=== PATIENT | male | born 1940 | race Caucasian/White ===

== ENCOUNTER 2020-04-17 01:35 | Emergency (ER) | payer SELFPAY ==
[~2020-04-17] VITALS: Ht 167.6 cm; Wt 71.9 kg
[2020-04-17 03:15] LABS: BASOPHILS # (AUTO) 0.03 x10^3/uL (0-0.1); BASOPHILS % (AUTO) 1 % (0-1); EOSINOPHILS # (AUTO) 0.11 x10^3/uL (0-0.4); EOSINOPHILS % (AUTO) 2 % (1-7); LYMPHOCYTES # (AUTO) 0.76 x10^3/uL (1-3.4); LYMPHOCYTES % (AUTO) 12 % (22-44); MD NO; MEAN CORPUSCULAR HEMOGLOBIN 29.2 pg (27.5-34.5); MEAN CORPUSCULAR HGB CONC 32.2 g/dL (33.2-36.2); MEAN CORPUSCULAR VOLUME 90.7 fL (81-97); MEAN PLATELET VOLUME 7.2 fL (7.4-10.4); MONOCYTES # (AUTO) 0.44 x10^3/uL (0.2-0.8); MONOCYTES % (AUTO) 7 % (2-9); NEUTROPHILS # (AUTO) 5.23 x10^3/uL (1.8-6.8); NEUTROPHILS % (AUTO) 80 % (42-75); PLATELET COUNT 235 x10^3/uL (130-400); RED BLOOD COUNT 3.98 x10^6/uL (4.38-5.82); RED CELL DISTRIBUTION WIDTH 14.9 % (9.4-14.8)
[2020-04-17 03:25] LABS: ALBUMIN 3.6 g/dL (3.4-5.0); ANION GAP 7 mmol/L (5-15); CHLORIDE 108 mmol/L (98-107)
[2020-04-17 03:36] LABS: ALANINE AMINOTRANSFERASE 26 U/L (12-78); ALKALINE PHOSPHATASE 54 U/L (45-117); BILIRUBIN,TOTAL 0.6 mg/dL (0.2-1.0); CREATININE 1.08 mg/dL (0.7-1.3)
[2020-04-17 03:37] LABS: SALICYLATE LEVEL < 1.7 mg/dL (2.8-20.0)
[2020-04-17 05:06] VITALS: BP 154/99
--- NOTE | 2020-04-17 05:39 | NUR ---
PT REFUSING TO GO INTO ROOM UNTILL WE PROVIDE HIM WITH "A MEDICAL SHOWER TO WASH OFF THE LSD POWER" PT REFUSING TO COMPLY WITH ASSESSMENT QUESTIONS, BECOMING ANGRY AND YELLING AT STAFF. PT THEN REQUESTING TO LEAVE. THEN SHOWN TO EXIT.
== END 2020-04-17 05:42 | disposition left against medical advice (07) ==
LOC: ED 05:23
DX: R44.3 Hallucinations, unspecified (principal)
CPT/HCPCS: 36415; 80053; 80307; 84443; 85025; 99283

== ENCOUNTER 2020-04-21 10:05 | Inpatient (IN) | payer MEDICARE, MEDICAID ==
[~2020-04-21] VITALS: Ht 167.6 cm; Wt 63.4 kg
--- NOTE | 2020-04-21 10:42 | NUR ---
Message left on Social Work's cell asking them to come see patient as soon as possible.
[2020-04-21 10:55] LABS: ALANINE AMINOTRANSFERASE 31 U/L (12-78); ALBUMIN 3.5 g/dL (3.4-5.0); ANION GAP 5 mmol/L (5-15); CALCIUM 8.5 mg/dL (8.5-10.1); CHLORIDE 108 mmol/L (98-107); CREATININE 1.19 mg/dL (0.7-1.3)
--- NOTE | 2020-04-21 10:56 | NUR ---
PT PRESENTS TO ED WITH REQUEST TO REFILL NITRO RX. PT DEMONSTRATES PARANOID DELUSIONS, HOWEVER DENIES HI/SI. PT IS A&O, RESPS EVEN AND UNLABORED, NEURO INTACT, NSR ON MONITORING SPECIALIST WITH NO ECTOPY. PT ATTACHED TO ALL MONITORS, INSTRUCTED TO REMAIN IN BED AND CALL IF ASSISTANCE IS NEEDED. BED LOCKED AND IN LOWEST POSITION, CALL LIGHT IN REACH, PT INSTRUCTED ON USE. PT DENIES PAIN. OCCAISIONAL COUGH NOTED, PT STATES THIS HAS BEEN PRESENT X 1 WEEK "SINCE THEY SPRAYED US WITH LSD." SUYAPA CHRISTENSEN NOTIFIED. DECLINES TO ORDER COVID SCREEN AT THIS TIME. MASK ON PT AND STAFF. MEAL TRAY ORDERED BY , PT TO SEE STAFF NUCLEAR WEAPONS OFFICER WHEN IN HOUSE.
[2020-04-21 11:00] LABS: ALKALINE PHOSPHATASE 64 U/L (45-117); BILIRUBIN,TOTAL 0.6 mg/dL (0.2-1.0); TOTAL PROTEIN 8.1 g/dL (6.4-8.2); TROPONIN I < 0.015 ng/mL (0.000-0.045)
--- NOTE | 2020-04-21 11:03 | NUR ---
PT REFUSING CXR, EDMD FERMIN NOTIFIED.
[2020-04-21 11:06] LABS: BASOPHILS # (AUTO) 0.03 x10^3/uL (0-0.1); BASOPHILS % (AUTO) 1 % (0-1); EOSINOPHILS # (AUTO) 0.09 x10^3/uL (0-0.4); EOSINOPHILS % (AUTO) 2 % (1-7); LYMPHOCYTES # (AUTO) 0.62 x10^3/uL (1-3.4); LYMPHOCYTES % (AUTO) 12 % (22-44); MD NO; MEAN CORPUSCULAR HGB CONC 32.9 g/dL (33.2-36.2); MEAN PLATELET VOLUME 7.3 fL (7.4-10.4); MONOCYTES # (AUTO) 0.38 x10^3/uL (0.2-0.8); MONOCYTES % (AUTO) 7 % (2-9); NEUTROPHILS % (AUTO) 79 % (42-75); PLATELET COUNT 238 x10^3/uL (130-400); RED BLOOD COUNT 3.85 x10^6/uL (4.38-5.82)
--- NOTE | 2020-04-21 11:17 | NUR ---
THIS RN SPOKE WITH PT, ATTEMPTING TO CONVINCE PT TO ALLOW CXR, PT REFUSING TREATMENT AT THIS TIME, STATING HE NEEDS TO LEAVE "TO SAVE MY FRIEND'S LIFE, THEY MIGHT KILL HIM." PT REQUESTED RN TO REMOVE ALL MONITORS. SUYAPA CHRISTENSEN NOTIFIED, LUBA CONTRERAS NOTIFIED, LUBA CONTRERAS AT BEDSIDE AT THIS TIME.
--- NOTE | 2020-04-21 11:40 | NUR ---
LUBA CONTRERAS HAS PLACED THE PT ON A LEGAL HOLD, PT EDUCATED REGARDING PROCESS AND POC. PT AGITATED AND UPSET. PT INSTRUCTED TO PROVIDE URINE SAMPLE, PT DEFECATED IN URINAL. TECH AT BEDSIDE A SITTER FOR SAFETY. PT REFUSING TO UNDRESS INTO GOWN, REFUSING MONITORS, REFUSING TO COOPERATE IN ANY FASION.
--- NOTE | 2020-04-21 11:41 | NUR ---
psych whipped topping supervisor paged for Dr. Heredia
[2020-04-21] MEDS ORDERED: HALOPERIDOL 5 MG/ML ONE ×3 (11:51→22:52)
[2020-04-21] MEDS ORDERED: LORazepam 2 MG/ML, 1ML ONE ×2 (11:52→15:03)
[2020-04-21] MEDS ORDERED: HALOPERIDOL 5 MG/ML IM ONE (12:00)
[2020-04-21] MEDS ORDERED: LORazepam 2 MG/ML, 1ML IM ONE (12:00)
--- NOTE | 2020-04-21 12:00 | NUR ---
PT MEDICATED FOR AGITATION, SECURITY AT BEDSIDE TO ASSIST PT INTO GOWN AND ON MONITORS. PT MOVED TO SECURE ROOM (3), REPORT GIVEN TO ANNA MARIE MORA WHO IS ASSUMING CARE.
--- NOTE | 2020-04-21 12:22 | NUR ---
REPORT FROM DAKOTA THRASHER, ASSUME CARE OF PT AT THIS TIME. PT UNDRESSED AND PLACED IN GOWN WITH ASSISTANCE OF SECURITY AND SIDE FRAMER. BELONGINGS TO SECURE LOCKER. PT PLACED ON HEART MONITOR, BP CUFF, PULSE OX. PT STATES HE HAS COUGH AND SOB BUT JUST WANTS "NITRO". PT STATES HE TESTED POSTIVE FOR COVID IN NOVEMBER AND WAS HOSPITALIZED FOR 1.5 MONTHS IN [place], [place]. DROPLET PRECAUTIONS IN PLACE D/T RESP SX. SITTER AT DOORWAY FOR LEGAL HOLD.
--- NOTE | 2020-04-21 12:30 | NUR ---
XR TECH INFORMED, PT READY FOR PCXR.
[2020-04-21] MEDS ORDERED: POTASSIUM CHLORIDE 20 MEQ TAB.ER.PRT ONE (13:23)
[2020-04-21] MEDS ORDERED: FUROSEMIDE 40 MG TABLET ONE (13:23)
[2020-04-21] MEDS ORDERED: FUROSEMIDE 40 MG TABLET PO ONE (13:30)
[2020-04-21] MEDS ORDERED: POTASSIUM CHLORIDE 20 MEQ TAB.ER.PRT PO ONE (13:30)
--- NOTE | 2020-04-21 13:36 | NUR ---
PO MEDS GIVEN PER ERP ORDER. CNC SUPERVISOR IN TO START IV FOR ADMIT. COVID TEST SAMPLE OBTAINED BY DR CHRISTENSEN. CALL LIGHT WITHIN REACH, VS UPDATED IN COMPUTER. PT MORE COOPERATIVE WITH CARE AT THIS TIME.
--- NOTE | 2020-04-21 14:06 | NUR ---
SATS DIPPING TO 88% WHILE PT SLEEPING. OXYGEN PLACED AT 2LITERS VIA NC. SITTER REMAINS IN DOORWAY.
[2020-04-21] MEDS ORDERED: DIPHENHYDRAMINE 50 MG/ML, 1ML IM PRN (15:00)
[2020-04-21] MEDS ORDERED: DIPHENHYDRAMINE 50 MG/ML, 1ML ONE (15:03)
--- NOTE | 2020-04-21 15:26 | NUR ---
PT AWOKE, DEFECATED IN URINAL AND PULLED IV OUT. PT THEN PROCEEDED TO THROW STOOL, URINAL, AND IV AT LABOR CONTRACTOR/SITTER. OXYGEN AND PULSE OX ALSO REMOVED BY PT. PT YELLING UNINTELLIGIBLE THINGS AT STAFF. CAROL MARQUEZ CALLED TO EVALUATE. PRNS ORDERED, MEDS DRAWN UP BUT PT SLEEPING PRIOR TO ADMINISTRATION. CAROL MARQUEZ AT -ATTEMPT TO EVALUATE PT. PT UNCOOPERATIVE, NOT ASKING QUESTIONS, THROWING GOWN AND URINAL OFF BED. HOLD ON MEDS PER JIMMY D/T PT'S DROWSY STATE. PULSE OX AND OXYGEN PLACED BACK ON. SITTER AT DOORWAY.
[2020-04-21] MEDS: HALOPERIDOL 5 MG/ML IM PRN ×2 (16:14→22:57)
[2020-04-21] MEDS: LORazepam 2 MG/ML, 1ML IM PRN (16:14)
--- NOTE | 2020-04-21 16:14 | NUR ---
PT UP IN ROOM AGAIN, REMOVED ALL MONITORING EQUIPMENT AND DEFECATING IN ROOM. PT NOT RECEPTIVE TO REORIENTATION OR DIVERSIONAL ACTIVITIES. PT TOUCHING COMPUTER, WIPING STOOL ON CURTAIN, FOSTER, ETC. SECURITY CALLED AND RESTRAINTS PLACED. PT MEDICATED PER PRN ORDER. ALL MONITORING EQUIPMENT BACK IN PLACE. SITTER MAINTAINED AT BS.
[2020-04-21] MEDS ORDERED: LABETALOL 5MG/ML, 20ML IVPush PRN (16:30)
[2020-04-21] MEDS ORDERED: ACETAMINOPHEN 325 MG TABLET PO PRN (16:30)
[2020-04-21] MEDS ORDERED: HALOPERIDOL 5 MG/ML IM PRN (16:30)
[2020-04-21] MEDS ORDERED: hydrALAzine 20 MG/ML, 1ML IVPush PRN (16:30)
[2020-04-21] MEDS ORDERED: PROMETHAZINE 25 MG/ML, 1ML IM PRN (16:30)
[2020-04-21] MEDS ORDERED: ONDANSETRON 2MG/ML, 2ML IVPush PRN (16:30)
--- NOTE | 2020-04-21 16:30 | NUR ---
VS RECORDED ON RESTRAINT MONITORING SHEET. UNABLE TO GET AUTO BP CUFF READING. MANUAL CUFF WITH AUSCULTAION FOR BP, UPDATED IN COMPUTER.
[2020-04-21] MEDS ORDERED: FUROSEMIDE 20 MG/2 ML IV SCH (17:00)
--- NOTE | 2020-04-21 17:44 | NUR ---
PT LYING ON GURNEY, HAY-PULLING AT RESTRAINTS. PT REMAINS CONFUSED TO SITUATION AND UNSAFE TO CONSIDER REMOVAL OF RESTRAINTS AT THIS TIME. VSS/UPDATED IN COMPUTER. SITTER AT DOORWAY.
[2020-04-21 17:49] LABS: TROPONIN I 0.021 ng/mL (0.000-0.045)
[2020-04-21] MEDS ORDERED: HEPARIN 5,000 UNITS/ML, 1ML ONE (18:36)
[2020-04-21] MEDS ORDERED: NS + 40MEQ KCL 1,000 ML IV ONE (18:36)
[2020-04-21] MEDS: HEPARIN 5,000 UNITS/ML, 1ML SQ SCH (19:04)
--- NOTE | 2020-04-21 19:09 | NUR ---
MED REQUEST TO PHARMACY FOR IV KCL FLUIDS. IV REESTABLISHED BY COMMUNICATIONS SYSTEMS ENGINEER. VSS/UPDATED IN COMPUTER. PT CONTINUES TO PULL AT RESTRAINTS. REASSURANCE OFFERED, LIGHTS DIMMED. SITTER AT DOORWAY.
[2020-04-21] MEDS ORDERED: POTASSIUM CHLORIDE 40 MEQ in SODIUM CHLORIDE 0.9% 500 ML IV ONE (19:20)
--- NOTE | 2020-04-21 19:58 | NUR ---
Late note: this tech and cduncan assisted with restraint of pt, dressing, changing of bedding, diapering, cutting down feces covered curtain These two techs solely cleaned feces, blood and urine from the bed, etienne, and floor
--- NOTE | 2020-04-21 20:33 | NUR ---
DR POLKTCH IN TO DO FACE TO FACE REASSESSMENT FOR RESTRAINTS. VSS. PT SLEEPING INTERMITTENTLY, NAD. PT CONTINUES TO PULL ON RESTRAINTS, MUMBLES UNINTELLIGIBLY WHEN ASKED QUESTIONS. PT NOT SAFE TO BE WITHOUT RESTRAINTS. SITTER AT DOORWAY.
--- NOTE | 2020-04-21 21:02 | NUR ---
REPORT TO AMPARO RN, TRANSFER OF CARE AT THIS TIME.
--- NOTE | 2020-04-21 21:07 | NUR ---
REPORT FROM ABBY THRASHER.
[2020-04-21] MEDS ORDERED: hydrALAzine 20 MG/ML, 1ML ONE (22:08)
[2020-04-21] MEDS ORDERED: LABETALOL 5MG/ML, 20ML ONE (22:51)
--- NOTE | 2020-04-21 23:03 | NUR ---
PT CONTINUES TO BE RESTLESS AND AGITATED. MEDICATED PER MAR. SITTER OUTSIDE DOOR.
--- NOTE | 2020-04-21 23:59 | NUR ---
PT SLEEPING, RESTRAINTS REMOVED. SAFETY FALL PRECAUTIONS IN PLACE. SITTER OUTSIDE ROOM.
--- NOTE | 2020-04-22 01:11 | NUR ---
PT SLEEPING NO ACUTE DISTRESS NOTED. SITTER IN HALLWAY.
[2020-04-22] MEDS ORDERED: HEPARIN 5,000 UNITS/ML, 1ML ONE (02:12)
[2020-04-22] MEDS: HEPARIN 5,000 UNITS/ML, 1ML SQ SCH ×3 (02:18→17:58)
--- NOTE | 2020-04-22 02:26 | NUR ---
UPDATED NIGHT HOSPITALIST ON TROPONIN 0.05. NO NEW ORDERS AT THIS TIME.
--- NOTE | 2020-04-22 02:52 | NUR ---
PT NOTED TO HAVE INCREASED WOB, SATS AT 91% 2L NC. CALL TO RT FOR EVAL. WILL UPDATE HOSPITALIST.
--- NOTE | 2020-04-22 03:06 | NUR ---
PER DR. GALLEGO GIVE LASIX 40MG IV ONE TIME, AND ABG. ORDERS ENTERED AND VERIFIED.
[2020-04-22] MEDS ORDERED: FUROSEMIDE 40 MG/4 ML ONE (03:08)
--- NOTE | 2020-04-22 03:20 | NUR ---
UPDATED HOSPITALIST ON FEVER SPIKE. RECTAL TYLENOL ORDER PER .
[2020-04-22] MEDS ORDERED: ACETAMINOPHEN 650 MG SUPP ONE ×2 (03:21→07:22)
[2020-04-22] MEDS: ACETAMINOPHEN 650 MG SUPP PR PRN ×2 (03:26→07:29)
[2020-04-22] MEDS ORDERED: FUROSEMIDE 40 MG/4 ML IV ONE (03:30)
[2020-04-22 05:24] LABS: CALCIUM 8.6 mg/dL (8.5-10.1); CHLORIDE 111 mmol/L (98-107)
[2020-04-22 05:33] LABS: ALANINE AMINOTRANSFERASE 26 U/L (12-78); ALKALINE PHOSPHATASE 47 U/L (45-117); ANION GAP 7 mmol/L (5-15); BILIRUBIN,TOTAL 1.1 mg/dL (0.2-1.0); CHOL/HDL RATIO 2.3; CHOLESTEROL, TOTAL 134 mg/dL (140-239); CREATININE 2.44 mg/dL (0.7-1.3); HDL CHOL % 44 % (26-37); HDL CHOLESTEROL (DIRECT) 59 mg/dL (40-60); LDL CHOLESTEROL,CALCULATED 65 mg/dL (54-169); LDL/HDL RATIO 1.1 (0.5-3.0); TOTAL PROTEIN 7.1 g/dL (6.4-8.2); TRIGLYCERIDES 49 mg/dL (50-200); TROPONIN I 0.096 ng/mL (0.000-0.045); VLDL CHOLESTEROL 10 mg/dL (0-25)
[2020-04-22] MEDS ORDERED: LORazepam 2 MG/ML, 1ML ONE (05:36)
[2020-04-22] MEDS: LORazepam 2 MG/ML, 1ML IM PRN (05:40)
--- NOTE | 2020-04-22 05:42 | NUR ---
PT INCREASINGLY RESTLESS AND AGITATED. MEDICATED PER MAR.
[2020-04-22 05:57] LABS: MEAN CORPUSCULAR HEMOGLOBIN 29.9 pg (27.5-34.5); MEAN CORPUSCULAR HGB CONC 32.9 g/dL (33.2-36.2); MEAN PLATELET VOLUME 7.7 fL (7.4-10.4); PLATELET COUNT 161 x10^3/uL (130-400); RED BLOOD COUNT 4.24 x10^6/uL (4.38-5.82); RED CELL DISTRIBUTION WIDTH 15.2 % (9.4-14.8)
--- NOTE | 2020-04-22 05:57 | NUR ---
TROPONIN 0.096 REPORTED TO MD GALLEGO. NO NEW ORDERS AT THIS TIME.
--- NOTE | 2020-04-22 05:57 | NUR ---
PT HAD ONE LARGE BM, PROVIDED PERICARE. FALL PRECAUTIONS IN PLACE. SITTER OUTSIDE DOOR FOR SAFETY. HOSPITAL BED REQUESTED.
[2020-04-22 05:59] LABS: MD YES
[2020-04-22 06:01] LABS: ANISOCYTOSIS 1+; BAND#(MANUAL) 1.05 x10^3/uL; BANDS%(MANUAL) 19 % (0-7); HYPOCHROMIA 1+; LYMPH#(MANUAL) 0.17 x10^3/uL (1-3.4); LYMPHS% (MANUAL) 3 % (22-44); MONOS#(MANUAL) 0.11 x10^3/uL (0.3-2.7); MONOS% (MANUAL) 2 % (2-9); POLYCHROMASIA 1+; SEG#(MANUAL) 4.18 x10^3/uL (1.8-6.8); SEGS% (MANUAL) 76 % (42-75)
[2020-04-22 06:02] LABS: <PLATELET ESTIMATE> ADEQUATE; <PLT MORPHOLOGY> NORMAL PLT MORPH; PMNS WITH VACUOLES 1+
--- NOTE | 2020-04-22 06:56 | NUR ---
REPORT GIVEN TO ABIMBOLA THRASHER.
--- NOTE | 2020-04-22 07:18 | NUR ---
PT WITH RR 45, SAT 93% 5L. PT ARROUSABLE TO STERNAL RUB ONLY, PAINFUL RESPONSE NOT OPENING EYES. PT WITH LOW BP 95/58, TEMP 103.0, TYELENOL GIVEN 3 HR AGO. CALLED TO UPDATE, HE IS TO COME EVAL PT, ORDERS RECIEVED STAT ABG, DX CHEST
--- NOTE | 2020-04-22 07:51 | NUR ---
SECOND PIV INITIATED,DX CHEST COMPLETED. AWAITING ABG. IN TO EVAL PT, PLAN TO INTUBATE. PT TO MOVE TO ER 41. REPORT TO SEEMA THRASHER
[2020-04-22] MEDS: PROPOFOL 100 ML IV PRN (08:20)
[2020-04-22] MEDS ORDERED: PROPOFOL 10 MG/ML, 20ML IVPush ONE (08:30)
[2020-04-22] MEDS ORDERED: SUCCINYLCHOLINE 20 MG/ML, 10ML IVPush ONE (08:30)
[2020-04-22] MEDS ORDERED: VECURONIUM 10 MG IVPush ONE (08:30)
[2020-04-22] MEDS ORDERED: FENTANYL PF 100 MCG/2ML IV ONE (08:30)
[2020-04-22] MEDS ORDERED: ETOMIDATE 20 MG/10 ML IV ONE (08:30)
--- NOTE | 2020-04-22 08:37 | NUR ---
HOSPITALIST CALLED FOR LOW BP 56/34. ORDERS RECIEVED
[2020-04-22] MEDS ORDERED: NOREPINEPHRINE 8 MG in SODIUM CHLORIDE 0.9% 242 ML IV PRN (08:40)
[2020-04-22] MEDS: NOREPINEPHRINE 8 MG in SODIUM CHLORIDE 0.9% 242 ML IV PRN ×2 (08:40→15:27)
[2020-04-22] MEDS: SODIUM CHLORIDE 0.9% 1,500 ML IV SCH ×2 (09:00→12:00)
[2020-04-22] MEDS: ASPIRIN 81 MG TABLET CHEW PO SCH (09:00)
[2020-04-22] MEDS ORDERED: SODIUM CHLORIDE 0.9% 1,000ML IVBOLUS ONE ×2 (09:00→12:00)
[2020-04-22] MEDS ORDERED: PHENYLEPHRINE 50 MG in SODIUM CHLORIDE 0.9% 245 ML IV PRN (09:00)
--- NOTE | 2020-04-22 10:10 | NUR ---
SPOKE WITH DR. HOFFMAN. DISCUSSED PCT CRITICAL VALUE AND ANTHONY. PLACED ANTHONY VIA HEAD OF PENIS. CATETER EXITED THE PATIENT IN SCROTUM AREA BELOW END OF SHAFT. HOSPITALIST AWARE.
--- NOTE | 2020-04-22 10:12 | NUR ---
LATE ENTRY FOR 0800. PT TRANSFERRED TO ROOM 41. HOSPITALIST REQUESTS INTUBATION.
--- NOTE | 2020-04-22 10:12 | NUR ---
LATE ENTRY FOR 829 INTUBATION COMPLETE. PT ON APPROPRIATE MEDICATIONS PER ORDERS. NADN.
--- NOTE | 2020-04-22 10:13 | NUR ---
LATE ENTRY FOR [address] ANTHONY.
--- NOTE | 2020-04-22 10:48 | NUR ---
SPOKE WITH DR. HOFFMAN. PER DR. HOFFMAN SHE WANTS SYSTOLIC >90. ORDER FOR ANOTHER LITER OF NS AND TO TITRATE MEDICATION TO MEET HER REQUEST. Addendum: 04/22/20 at 1148 by ALFREDO ALSO ASKED ABOUT A POSSIBLE CENTRAL LINE.
--- NOTE | 2020-04-22 11:02 | NUR ---
DR. HOFFMAN STATES THAT A COUDE ANTHONY CAN BE INSTERTED INTO THE "FISTULA" IN THE SCROTUM. THAT IF NEEDED, DR. SANDRO CAREY WILL COME THIS AFTERNOON.
--- NOTE | 2020-04-22 12:12 | NUR ---
LITER BOLUS FROM EARLIER ORDER FROM DR. HOFFMAN COMPLETED.
--- NOTE | 2020-04-22 12:44 | NUR ---
SPOKE WITH DR. HOFFMAN. RELAYED PT RATE FOR LEVO AND PRESSURE. STATES SHE IS GOING TO ORDER VASOPRESSIN. ALSO RELAYED TO DR. HOFFMAN TO CALL DR. SANDRO CAREY TO INSERT ANTHONY.
[2020-04-22] MEDS ORDERED: VASOPRESSIN 20 UNIT in SODIUM CHLORIDE 0.9% 99 ML IV PRN (13:00)
--- NOTE | 2020-04-22 13:18 | NUR ---
TASK RN NOTE: ATTEMPT FOR ANOTHER IV. ONE AREA ON LEFT FOREARM ATTEMPTED WITHOUT SUCCESS FOR PIV ACCESS. PRIMARY RN AWARE.
--- NOTE | 2020-04-22 13:21 | NUR ---
THIRD PIV UNSUCCESSFUL. VASO HAS NOT ARRIVED FROM PHARMACY. PT BEING TRANSPORTED TO CT AND THEN ICU
[2020-04-22] MEDS ORDERED: FENTANYL PF 100 MCG/2ML ONE (13:56)
[2020-04-22] MEDS ORDERED: ETOMIDATE 20 MG/10 ML ONE (15:00)
[2020-04-22] MEDS ORDERED: PROPOFOL 10 MG/ML, 100ML IV ONE (15:00)
[2020-04-22] MEDS ORDERED: VECURONIUM 10 MG ONE (15:00)
[2020-04-22] MEDS ORDERED: SUCCINYLCHOLINE 20 MG/ML, 10ML ONE (15:00)
[2020-04-22] MEDS ORDERED: PROPOFOL 10 MG/ML, 20ML ONE (15:00)
[2020-04-22 15:10] LABS: MICROSCOPIC INDICATED
[2020-04-22 15:13] LABS: AMPHETAMINE SCREEN, URINE Negative (Negative); BARBITURATE SCREEN, URINE Negative (Negative); BENZODIAZEPINE SCREEN, URINE Negative (Negative); CANNABINOID SCREEN, URINE Negative (Negative); COCAINE SCREEN, URINE Negative (Negative); METHADONE SCREEN, URINE Negative (Negative); OPIATE SCREEN, URINE Negative (Negative)
[2020-04-22] MEDS: LINEZOLID PMX 600MG/300ML 300 ML IV SCH (15:37)
[2020-04-22 16:37] LABS: ANION GAP 9 mmol/L (5-15); CALCIUM 7.4 mg/dL (8.5-10.1); CHLORIDE 117 mmol/L (98-107); CREATININE 3.03 mg/dL (0.7-1.3)
[2020-04-22 16:41] LABS: TROPONIN I 0.174 ng/mL (0.000-0.045)
[2020-04-22 16:45] LABS: D-DIMER 7.37 ug/mlFEU (0.00-0.52); INTERNATIONAL NORMALIZED RATIO 1.24 (0.93-1.1); PROTHROMBIN TIME 13.2 Seconds (9.6-11.5)
[2020-04-22] MEDS ORDERED: POTASSIUM CHLORIDE 20 MEQ PACKET PO SCH (17:00)
[2020-04-22] MEDS ORDERED: SODIUM CHLORIDE 0.9% 1,000 ML IV SCH (17:30)
[2020-04-22] MEDS ORDERED: ACETAMINOPHEN 650 MG/20.3 ML UDC ONE (17:52)
[2020-04-22] MEDS: ACETAMINOPHEN 650 MG/20.3 ML UDC PO PRN (17:58)
[2020-04-22] MEDS: PIPERACILLIN/TAZO/PMX 3.375GM 50 ML IV SCH ×2 (17:59→23:57)
[2020-04-22] MEDS: NOREPINEPHRINE 32 MG in SODIUM CHLORIDE 0.9% 218 ML IV PRN (18:38)
[2020-04-22] MEDS: ATORVASTATIN 40 MG TABLET PO SCH (20:08)
[2020-04-22 23:04] LABS: TROPONIN I 0.306 ng/mL (0.000-0.045)
[2020-04-23] MEDS: LINEZOLID PMX 600MG/300ML 300 ML IV SCH ×2 (02:51→13:45)
[2020-04-23] MEDS: HEPARIN 5,000 UNITS/ML, 1ML SQ SCH ×3 (02:53→18:26)
[2020-04-23] MEDS: ACETAMINOPHEN 650 MG/20.3 ML UDC PO PRN (02:55)
[2020-04-23] MEDS: PROPOFOL 100 ML IV PRN ×4 (04:09→20:02)
[2020-04-23] MEDS: NOREPINEPHRINE 32 MG in SODIUM CHLORIDE 0.9% 218 ML IV PRN ×2 (04:34→20:03)
[2020-04-23 05:46] LABS: MEAN CORPUSCULAR HEMOGLOBIN 29.6 pg (27.5-34.5); MEAN CORPUSCULAR HGB CONC 32.3 g/dL (33.2-36.2); MEAN PLATELET VOLUME 8.9 fL (7.4-10.4); PLATELET COUNT 133 x10^3/uL (130-400)
[2020-04-23 05:49] LABS: ALANINE AMINOTRANSFERASE 34 U/L (12-78); ALBUMIN 2.1 g/dL (3.4-5.0); ANION GAP 10 mmol/L (5-15); CALCIUM 7.2 mg/dL (8.5-10.1); CHLORIDE 115 mmol/L (98-107); CREATININE 3.63 mg/dL (0.7-1.3)
[2020-04-23 05:51] LABS: ALKALINE PHOSPHATASE 43 U/L (45-117); BILIRUBIN,TOTAL 1.1 mg/dL (0.2-1.0); TOTAL PROTEIN 6.7 g/dL (6.4-8.2)
[2020-04-23 06:03] LABS: MD YES
[2020-04-23 06:06] LABS: BAND#(MANUAL) 2.66 x10^3/uL; BANDS%(MANUAL) 15 % (0-7); LYMPH#(MANUAL) 1.06 x10^3/uL (1-3.4); LYMPHS% (MANUAL) 6 % (22-44); METAMYELOCYTES# (MANUAL) 0.53 x10^3/uL (0-0); METAMYELOCYTES% (MANUAL) 3 % (0-1); MONOS#(MANUAL) 0.89 x10^3/uL (0.3-2.7); MONOS% (MANUAL) 5 % (2-9); SEG#(MANUAL) 12.57 x10^3/uL (1.8-6.8); SEGS% (MANUAL) 71 % (42-75)
[2020-04-23 06:07] LABS: ANISOCYTOSIS 1+; POLYCHROMASIA 1+
[2020-04-23] MEDS: PIPERACILLIN/TAZO/PMX 3.375GM 50 ML IV SCH (06:07)
[2020-04-23 06:08] LABS: <PLATELET ESTIMATE> ADEQUATE; <PLT MORPHOLOGY> NORMAL PLT MORPH; PMNS WITH VACUOLES 1+
[2020-04-23] MEDS ORDERED: SODIUM ZIRCONIUM CYCLOSILICATE 5 GM PO ONE (06:30)
[2020-04-23] MEDS ORDERED: SODIUM BICARBONATE 8.4% 150 MEQ in DEXTROSE 5% 1,000 ML IV SCH (06:30)
[2020-04-23 07:20] LABS: TROPONIN I 0.521 ng/mL (0.000-0.045)
--- NOTE | 2020-04-23 09:43 | NUR ---
TF Recommendations as Needed: Osmolite 1.2 ON/OFF propofol 70 ml/hr
[2020-04-23] MEDS: ASPIRIN 81 MG TABLET CHEW PO SCH (10:46)
[2020-04-23 12:06] LABS: TROPONIN I 0.511 ng/mL (0.000-0.045)
[2020-04-23] MEDS ORDERED: PIPERACILLIN/TAZO/PMX 3.375GM 50 ML IV SCH (13:30)
[2020-04-23 15:41] LABS: ALBUMIN 1.7 g/dL (3.4-5.0); ANION GAP 9 mmol/L (5-15); CALCIUM 6.6 mg/dL (8.5-10.1); CHLORIDE 109 mmol/L (98-107); CREATININE 3.64 mg/dL (0.7-1.3)
[2020-04-23] MEDS ORDERED: CALCIUM GLUCONATE 4.6 MEQ in SODIUM CHLORIDE 0.9% 100 ML IV ONE (16:30)
[2020-04-23] MEDS ORDERED: DILTIAZEM 5 MG/ML, 5ML IVPush PRN (18:00)
[2020-04-23] MEDS: SODIUM CHLORIDE 0.9% 1,000 ML IV SCH (18:27)
[2020-04-23] MEDS: ATORVASTATIN 40 MG TABLET PO SCH (20:02)
[2020-04-23] MEDS: PIPERACILLIN/TAZO/PMX 2.25GM 50 ML IVPB SCH (20:02)
[2020-04-24] MEDS: HEPARIN 5,000 UNITS/ML, 1ML SQ SCH (02:16)
[2020-04-24] MEDS: LINEZOLID PMX 600MG/300ML 300 ML IV SCH (02:16)
[2020-04-24] MEDS: ACETAMINOPHEN 650 MG/20.3 ML UDC PO PRN (04:00)
[2020-04-24 04:33] LABS: MEAN CORPUSCULAR HGB CONC 32.9 g/dL (33.2-36.2); MEAN PLATELET VOLUME 9.1 fL (7.4-10.4); PLATELET COUNT 100 x10^3/uL (130-400); RED BLOOD COUNT 3.41 x10^6/uL (4.38-5.82); RED CELL DISTRIBUTION WIDTH 15.9 % (9.4-14.8)
[2020-04-24 04:39] LABS: ALBUMIN 1.7 g/dL (3.4-5.0); ANION GAP 8 mmol/L (5-15); CALCIUM 7.4 mg/dL (8.5-10.1); CHLORIDE 108 mmol/L (98-107)
[2020-04-24 04:42] LABS: ALANINE AMINOTRANSFERASE 26 U/L (12-78); ALKALINE PHOSPHATASE 44 U/L (45-117); CREATININE 3.66 mg/dL (0.7-1.3); TOTAL PROTEIN 5.7 g/dL (6.4-8.2)
[2020-04-24] MEDS: PIPERACILLIN/TAZO/PMX 2.25GM 50 ML IVPB SCH ×3 (05:19→21:24)
[2020-04-24 05:55] LABS: MD YES
[2020-04-24 05:57] LABS: BAND#(MANUAL) 1.94 x10^3/uL; BANDS%(MANUAL) 16 % (0-7); LYMPH#(MANUAL) 0.36 x10^3/uL (1-3.4); LYMPHS% (MANUAL) 3 % (22-44); MONOS#(MANUAL) 0.12 x10^3/uL (0.3-2.7); MONOS% (MANUAL) 1 % (2-9); SEG#(MANUAL) 9.68 x10^3/uL (1.8-6.8); SEGS% (MANUAL) 80 % (42-75)
[2020-04-24 05:58] LABS: <PLATELET ESTIMATE> DECREASED; <PLT MORPHOLOGY> NORMAL PLT MORPH; ANISOCYTOSIS 1+; PMNS WITH VACUOLES 1+
[2020-04-24] MEDS: PROPOFOL 100 ML IV PRN (06:07)
[2020-04-24] MEDS: PANTOPRAZOLE 40 MG IV IVPush SCH (09:21)
[2020-04-24] MEDS: ASPIRIN 81 MG TABLET CHEW PO SCH (09:22)
[2020-04-24 10:21] LABS: PLATELET (DIC) 98 x10^3/uL (130-400)
[2020-04-24 10:46] LABS: PROTIME 10.8 Seconds (9.6-11.5); PTT 39 Seconds (25-31)
[2020-04-24 10:55] LABS: FIBRINOGEN > 860 mg/dL (200-340)
[2020-04-24] MEDS: SODIUM CHLORIDE 0.9% 1,000 ML IV SCH ×2 (11:29→21:24)
[2020-04-24] MEDS ORDERED: PROPOFOL 100 ML IV PRN (16:04)
[2020-04-24] MEDS ORDERED: SODIUM CHLORIDE 0.9% 1,000ML IVBOLUS ONE (16:30)
[2020-04-24] MEDS ORDERED: SENNA 176 MG/5 ML ORAL SOL NG PRN (16:30)
[2020-04-24] MEDS ORDERED: LACTULOSE 20 GM/30 ML UDC NG PRN (16:30)
[2020-04-24] MEDS ORDERED: DEXTROSE 4 GM TAB.CHEW PO PRN (16:30)
[2020-04-24] MEDS ORDERED: BISACODYL 10 MG SUPP PR PRN (16:30)
[2020-04-24] MEDS ORDERED: LIDOCAINE-MPF 1%, 2ML ENDO PRN (16:30)
[2020-04-24] MEDS ORDERED: PHARMACY MAY ADJ FOR RENAL FX MC SCH (16:30)
[2020-04-24] MEDS ORDERED: GLUCAGON 1 MG IM PRN (16:30)
[2020-04-24] MEDS ORDERED: DEXTROSE 50%, 50ML SYRINGE IVPush PRN (16:30)
[2020-04-24] MEDS ORDERED: MIDAZOLAM 1 MG/ML, 2ML IVPush PRN (16:30)
[2020-04-24] MEDS ORDERED: SENNA/DOCUSATE TABLET NG PRN (16:30)
[2020-04-24] MEDS: DEXMEDETOMIDINE 400 MCG in SODIUM CHLORIDE 0.9% 96 ML IV PRN (19:58)
[2020-04-24] MEDS: ATORVASTATIN 40 MG TABLET PO SCH (21:24)
[2020-04-24] MEDS: SODIUM CHLORIDE FLUSH 10ML SYR IVF SCH (21:25)
[2020-04-25] MEDS: DEXMEDETOMIDINE 400 MCG in SODIUM CHLORIDE 0.9% 96 ML IV PRN (03:39)
[2020-04-25 04:28] LABS: ALANINE AMINOTRANSFERASE 28 U/L (12-78); ALBUMIN 1.6 g/dL (3.4-5.0); ANION GAP 9 mmol/L (5-15); CHLORIDE 114 mmol/L (98-107); CREATININE 3.86 mg/dL (0.7-1.3)
[2020-04-25 04:30] LABS: ALKALINE PHOSPHATASE 60 U/L (45-117); BILIRUBIN,TOTAL 0.8 mg/dL (0.2-1.0); TOTAL PROTEIN 5.3 g/dL (6.4-8.2)
[2020-04-25 04:43] VITALS: BP 95/66
[2020-04-25 05:06] LABS: MD YES; MEAN CORPUSCULAR HEMOGLOBIN 30.1 pg (27.5-34.5); MEAN CORPUSCULAR HGB CONC 33.3 g/dL (33.2-36.2); MEAN PLATELET VOLUME 8.9 fL (7.4-10.4); PLATELET COUNT 80 x10^3/uL (130-400); RED BLOOD COUNT 2.72 x10^6/uL (4.38-5.82); RED CELL DISTRIBUTION WIDTH 16.3 % (9.4-14.8)
[2020-04-25 05:12] LABS: ANISOCYTOSIS 1+; BAND#(MANUAL) 0.96 x10^3/uL; BANDS%(MANUAL) 9 % (0-7); LYMPH#(MANUAL) 0.32 x10^3/uL (1-3.4); LYMPHS% (MANUAL) 3 % (22-44); METAMYELOCYTES# (MANUAL) 0.11 x10^3/uL (0-0); METAMYELOCYTES% (MANUAL) 1 % (0-1); MONOS#(MANUAL) 0.32 x10^3/uL (0.3-2.7); MONOS% (MANUAL) 3 % (2-9); SEG#(MANUAL) 8.99 x10^3/uL (1.8-6.8); SEGS% (MANUAL) 84 % (42-75)
[2020-04-25 05:13] LABS: POLYCHROMASIA 1+
[2020-04-25 05:14] LABS: <PLATELET ESTIMATE> DECREASED; <PLT MORPHOLOGY> NORMAL PLT MORPH; PMNS WITH VACUOLES 1+
[2020-04-25] MEDS: PIPERACILLIN/TAZO/PMX 2.25GM 50 ML IVPB SCH (05:22)
[2020-04-25] MEDS: FENTANYL PF 100 MCG/2ML IVPush PRN ×2 (08:48→12:11)
[2020-04-25] MEDS: ASPIRIN 81 MG TABLET CHEW PO SCH (08:49)
[2020-04-25] MEDS: SODIUM CHLORIDE FLUSH 10ML SYR IVF SCH ×2 (08:49→22:03)
[2020-04-25] MEDS: PANTOPRAZOLE 40 MG IV IVPush SCH (08:49)
[2020-04-25] MEDS: SODIUM CHLORIDE 0.9% 1,000 ML IV SCH (08:49)
[2020-04-25] MEDS: CEFTRIAXONE PMX 2GM/50ML 50 ML IVPB SCH (11:00)
[2020-04-25] MEDS: QUETIAPINE 25MG TABLET PO SCH ×2 (13:38→22:03)
[2020-04-25] MEDS: MIDAZOLAM HCL 50 MG in SODIUM CHLORIDE 0.9% 40 ML IV PRN ×2 (13:38→22:03)
[2020-04-25 19:03] LABS: CREATININE,URINE RANDOM 81.9 mg/dL
[2020-04-25] MEDS: ATORVASTATIN 40 MG TABLET PO SCH (22:03)
[2020-04-26] MEDS: NOREPINEPHRINE 8 MG in SODIUM CHLORIDE 0.9% 242 ML IV PRN (01:43)
[2020-04-26] MEDS: MIDAZOLAM HCL 50 MG in SODIUM CHLORIDE 0.9% 40 ML IV PRN ×2 (01:43→21:07)
[2020-04-26 04:12] VITALS: BP 106/53
[2020-04-26 04:44] LABS: MEAN CORPUSCULAR HEMOGLOBIN 29.7 pg (27.5-34.5); MEAN CORPUSCULAR HGB CONC 32.9 g/dL (33.2-36.2); MEAN PLATELET VOLUME 10.3 fL (7.4-10.4); PLATELET COUNT 75 x10^3/uL (130-400); RED BLOOD COUNT 2.96 x10^6/uL (4.38-5.82); RED CELL DISTRIBUTION WIDTH 16.1 % (9.4-14.8)
[2020-04-26 04:52] LABS: ANION GAP 11 mmol/L (5-15); CALCIUM 7.5 mg/dL (8.5-10.1); CHLORIDE 114 mmol/L (98-107)
[2020-04-26 04:53] LABS: CREATININE 4.43 mg/dL (0.7-1.3)
[2020-04-26 05:36] LABS: MD YES
[2020-04-26 05:38] LABS: BAND#(MANUAL) 0.76 x10^3/uL; BANDS%(MANUAL) 7 % (0-7); EOS#(MANUAL) 0.22 x10^3/uL (0.0-0.4); EOS% (MANUAL) 2 % (1-7); LYMPH#(MANUAL) 0.76 x10^3/uL (1-3.4); LYMPHS% (MANUAL) 7 % (22-44); MONOS#(MANUAL) 0.11 x10^3/uL (0.3-2.7); MONOS% (MANUAL) 1 % (2-9); SEG#(MANUAL) 9.05 x10^3/uL (1.8-6.8); SEGS% (MANUAL) 83 % (42-75)
[2020-04-26 05:39] LABS: <PLATELET ESTIMATE> DECREASED; <PLT MORPHOLOGY> NORMAL PLT MORPH; ANISOCYTOSIS 1+; PMNS WITH VACUOLES 1+
[2020-04-26] MEDS ORDERED: SODIUM BICARBONATE 8.4% 150 MEQ in DEXTROSE 5% 1,000 ML IV SCH (06:30)
[2020-04-26] MEDS: PANTOPRAZOLE 40 MG IV IVPush SCH (08:02)
[2020-04-26] MEDS: CEFTRIAXONE PMX 2GM/50ML 50 ML IVPB SCH (08:02)
[2020-04-26] MEDS: QUETIAPINE 25MG TABLET PO SCH ×3 (08:02→20:31)
[2020-04-26] MEDS: ASPIRIN 81 MG TABLET CHEW PO SCH (08:03)
[2020-04-26] MEDS: SODIUM CHLORIDE FLUSH 10ML SYR IVF SCH ×2 (08:03→20:32)
--- NOTE | 2020-04-26 09:48 | NUR ---
Updated TF recommendations promote goal 80 ml/hr
[2020-04-26] MEDS: ATORVASTATIN 40 MG TABLET PO SCH (20:31)
[2020-04-27 04:44] VITALS: BP 147/78
[2020-04-27 05:08] LABS: MEAN CORPUSCULAR HEMOGLOBIN 29.4 pg (27.5-34.5); MEAN CORPUSCULAR HGB CONC 32.7 g/dL (33.2-36.2); MEAN PLATELET VOLUME 8.7 fL (7.4-10.4); PLATELET COUNT 63 x10^3/uL (130-400); RED BLOOD COUNT 2.93 x10^6/uL (4.38-5.82); RED CELL DISTRIBUTION WIDTH 16.3 % (9.4-14.8)
[2020-04-27 05:15] LABS: ALBUMIN 1.5 g/dL (3.4-5.0); ANION GAP 9 mmol/L (5-15); CALCIUM 7.3 mg/dL (8.5-10.1); CHLORIDE 109 mmol/L (98-107)
[2020-04-27 05:21] LABS: % IRON SATURATION 9 % (20-55); ALANINE AMINOTRANSFERASE 27 U/L (12-78); ALKALINE PHOSPHATASE 82 U/L (45-117); BILIRUBIN,TOTAL 0.5 mg/dL (0.2-1.0); CREATININE 3.29 mg/dL (0.7-1.3); IRON LEVEL 22 mcg/dL (65-175); TOTAL IRON BINDING CAPACITY 247 mcg/dL (250-450); TOTAL PROTEIN 5.8 g/dL (6.4-8.2); TRIGLYCERIDES 217 mg/dL (50-200)
[2020-04-27 05:49] LABS: BASOPHILS # (AUTO) 0.01 x10^3/uL (0-0.1); BASOPHILS % (AUTO) 0 % (0-1); EOSINOPHILS # (AUTO) 0.09 x10^3/uL (0-0.4); EOSINOPHILS % (AUTO) 1 % (1-7); LYMPHOCYTES # (AUTO) 0.45 x10^3/uL (1-3.4); LYMPHOCYTES % (AUTO) 6 % (22-44); MD SCAN; MONOCYTES # (AUTO) 0.28 x10^3/uL (0.2-0.8); MONOCYTES % (AUTO) 4 % (2-9); NEUTROPHILS # (AUTO) 6.94 x10^3/uL (1.8-6.8); NEUTROPHILS % (AUTO) 89 % (42-75)
[2020-04-27] MEDS: QUETIAPINE 25MG TABLET PO SCH ×3 (08:55→21:03)
[2020-04-27] MEDS: PANTOPRAZOLE 40 MG IV IVPush SCH (08:55)
[2020-04-27] MEDS: CEFTRIAXONE PMX 2GM/50ML 50 ML IVPB SCH (08:55)
[2020-04-27] MEDS: SODIUM CHLORIDE FLUSH 10ML SYR IVF SCH ×2 (08:56→21:03)
[2020-04-27] MEDS: ASPIRIN 81 MG TABLET CHEW PO SCH (08:56)
--- NOTE | 2020-04-27 09:50 | NUR ---
04/27-TF GOAL: VITAL AF 1.2 @ 70ML/HR
[2020-04-27] MEDS: ERGOCALCIFEROL 50,000 UNIT CAPSULE PO SCH (10:17)
[2020-04-27] MEDS: FENTANYL PF 100 MCG/2ML IVPush PRN (13:17)
[2020-04-27] MEDS: ATORVASTATIN 40 MG TABLET PO SCH (21:03)
[2020-04-28] MEDS: MIDAZOLAM HCL 50 MG in SODIUM CHLORIDE 0.9% 40 ML IV PRN (01:34)
[2020-04-28] MEDS: FENTANYL PF 100 MCG/2ML IVPush PRN ×2 (01:45→20:41)
[2020-04-28 04:00] VITALS: BP 131/60
[2020-04-28 04:56] LABS: MEAN CORPUSCULAR HEMOGLOBIN 29.5 pg (27.5-34.5); MEAN CORPUSCULAR HGB CONC 32.7 g/dL (33.2-36.2); MEAN PLATELET VOLUME 8.5 fL (7.4-10.4); PLATELET COUNT 62 x10^3/uL (130-400); RED BLOOD COUNT 2.85 x10^6/uL (4.38-5.82); RED CELL DISTRIBUTION WIDTH 15.9 % (9.4-14.8)
[2020-04-28 04:57] LABS: ALBUMIN 1.5 g/dL (3.4-5.0); ANION GAP 7 mmol/L (5-15); CALCIUM 7.7 mg/dL (8.5-10.1); CHLORIDE 107 mmol/L (98-107)
[2020-04-28 05:02] LABS: ALANINE AMINOTRANSFERASE 27 U/L (12-78); ALKALINE PHOSPHATASE 84 U/L (45-117); BILIRUBIN,TOTAL 0.4 mg/dL (0.2-1.0); CREATININE 2.34 mg/dL (0.7-1.3); TOTAL PROTEIN 5.9 g/dL (6.4-8.2)
[2020-04-28 05:48] LABS: BASOPHILS # (AUTO) 0.01 x10^3/uL (0-0.1); BASOPHILS % (AUTO) 0 % (0-1); EOSINOPHILS # (AUTO) 0.06 x10^3/uL (0-0.4); EOSINOPHILS % (AUTO) 1 % (1-7); LYMPHOCYTES # (AUTO) 0.41 x10^3/uL (1-3.4); LYMPHOCYTES % (AUTO) 5 % (22-44); MD SCAN; MONOCYTES # (AUTO) 0.28 x10^3/uL (0.2-0.8); MONOCYTES % (AUTO) 3 % (2-9); NEUTROPHILS # (AUTO) 7.76 x10^3/uL (1.8-6.8); NEUTROPHILS % (AUTO) 91 % (42-75)
[2020-04-28] MEDS ORDERED: CALCIUM CHLORIDE 13.6 MEQ in SODIUM CHLORIDE 0.9% 100 ML IV ONE (06:30)
[2020-04-28] MEDS: ASPIRIN 81 MG TABLET CHEW PO SCH (08:22)
[2020-04-28] MEDS: CEFTRIAXONE PMX 2GM/50ML 50 ML IVPB SCH (08:22)
[2020-04-28] MEDS: PANTOPRAZOLE 40 MG IV IVPush SCH (08:22)
[2020-04-28] MEDS: SODIUM CHLORIDE FLUSH 10ML SYR IVF SCH ×2 (08:23→20:41)
[2020-04-28] MEDS: QUETIAPINE 25MG TABLET PO SCH ×3 (08:23→20:41)
[2020-04-28 12:42] LABS: CLOSTRIDIUM DIFFICILE ANTIGEN NEGATIVE; CLOSTRIDIUM DIFFICILE TOXIN NEGATIVE (Negative)
[2020-04-28] MEDS: ATORVASTATIN 40 MG TABLET PO SCH (20:40)
[2020-04-28] MEDS: ACETAMINOPHEN 650 MG/20.3 ML UDC PO PRN (21:07)
[2020-04-29] MEDS: NOREPINEPHRINE 8 MG in SODIUM CHLORIDE 0.9% 242 ML IV PRN (02:53)
[2020-04-29] MEDS: MIDAZOLAM HCL 50 MG in SODIUM CHLORIDE 0.9% 40 ML IV PRN (02:53)
[2020-04-29 05:32] LABS: MEAN CORPUSCULAR HEMOGLOBIN 29.9 pg (27.5-34.5); MEAN CORPUSCULAR HGB CONC 32.8 g/dL (33.2-36.2); RED BLOOD COUNT 2.76 x10^6/uL (4.38-5.82); RED CELL DISTRIBUTION WIDTH 15.9 % (9.4-14.8)
[2020-04-29 05:37] LABS: ANION GAP 5 mmol/L (5-15); CALCIUM 7.9 mg/dL (8.5-10.1); CHLORIDE 108 mmol/L (98-107)
[2020-04-29 05:50] LABS: MD YES
[2020-04-29 05:51] LABS: MEAN PLATELET VOLUME 8.3 fL (7.4-10.4); PLATELET COUNT 88 x10^3/uL (130-400)
[2020-04-29 05:52] LABS: <PLATELET ESTIMATE> DECREASED; <PLT MORPHOLOGY> NORMAL PLT MORPH; ANISOCYTOSIS 1+; BANDS%(MANUAL) 1 % (0-7); EOS#(MANUAL) 0.21 x10^3/uL (0.0-0.4); EOS% (MANUAL) 2 % (1-7); LYMPH#(MANUAL) 1.34 x10^3/uL (1-3.4); LYMPHS% (MANUAL) 13 % (22-44); METAMYELOCYTES% (MANUAL) 1 % (0-1); MONOS#(MANUAL) 0.72 x10^3/uL (0.3-2.7); MONOS% (MANUAL) 7 % (2-9); SEG#(MANUAL) 7.83 x10^3/uL (1.8-6.8); SEGS% (MANUAL) 76 % (42-75)
[2020-04-29 05:53] LABS: TOXIC GRAN 1+
[2020-04-29] MEDS: PANTOPRAZOLE 40 MG IV IVPush SCH (08:04)
[2020-04-29] MEDS: CEFTRIAXONE PMX 2GM/50ML 50 ML IVPB SCH (08:04)
[2020-04-29] MEDS: ASPIRIN 81 MG TABLET CHEW PO SCH (08:05)
[2020-04-29] MEDS: QUETIAPINE 25MG TABLET PO SCH ×3 (08:05→21:23)
[2020-04-29] MEDS: SODIUM CHLORIDE FLUSH 10ML SYR IVF SCH ×2 (08:05→21:23)
[2020-04-29] MEDS: FUROSEMIDE 40 MG/4 ML IV SCH ×2 (10:17→21:23)
[2020-04-29] MEDS: ATORVASTATIN 40 MG TABLET PO SCH (21:23)
[2020-04-30] MEDS: MIDAZOLAM HCL 50 MG in SODIUM CHLORIDE 0.9% 40 ML IV PRN ×2 (01:28→21:45)
[2020-04-30 06:33] LABS: MEAN CORPUSCULAR HEMOGLOBIN 29.1 pg (27.5-34.5); MEAN CORPUSCULAR HGB CONC 32.1 g/dL (33.2-36.2); PLATELET COUNT 147 x10^3/uL (130-400); RED BLOOD COUNT 2.76 x10^6/uL (4.38-5.82); RED CELL DISTRIBUTION WIDTH 16.1 % (9.4-14.8)
[2020-04-30 06:39] LABS: ALANINE AMINOTRANSFERASE 25 U/L (12-78); ALBUMIN 1.7 g/dL (3.4-5.0); ANION GAP 7 mmol/L (5-15); CALCIUM 7.9 mg/dL (8.5-10.1); CHLORIDE 105 mmol/L (98-107); CREATININE 2.69 mg/dL (0.7-1.3)
[2020-04-30 06:43] LABS: ALKALINE PHOSPHATASE 80 U/L (45-117); BILIRUBIN,TOTAL 0.3 mg/dL (0.2-1.0); TOTAL PROTEIN 6.2 g/dL (6.4-8.2); TRIGLYCERIDES 137 mg/dL (50-200)
[2020-04-30 07:08] LABS: MD YES
[2020-04-30 07:09] LABS: BAND#(MANUAL) 0.61 x10^3/uL; BANDS%(MANUAL) 6 % (0-7); EOS% (MANUAL) 2 % (1-7); LYMPH#(MANUAL) 0.82 x10^3/uL (1-3.4); LYMPHS% (MANUAL) 8 % (22-44); MONOS#(MANUAL) 0.41 x10^3/uL (0.3-2.7); MONOS% (MANUAL) 4 % (2-9); SEG#(MANUAL) 8.16 x10^3/uL (1.8-6.8); SEGS% (MANUAL) 80 % (42-75)
[2020-04-30 07:11] LABS: <PLATELET ESTIMATE> ADEQUATE; <PLT MORPHOLOGY> NORMAL PLT MORPH; <RBC MORPHOLOGY> NORMAL
[2020-04-30] MEDS: HEPARIN 5,000 UNITS/ML, 1ML SQ SCH ×2 (09:00→18:03)
[2020-04-30] MEDS: CHOLESTYRAMINE LIGHT 4GM PACKET PO SCH ×2 (09:01→20:46)
[2020-04-30] MEDS: CEFTRIAXONE PMX 2GM/50ML 50 ML IVPB SCH (09:01)
[2020-04-30] MEDS: ASPIRIN 81 MG TABLET CHEW PO SCH (12:28)
[2020-04-30] MEDS: QUETIAPINE 25MG TABLET PO SCH ×3 (12:29→20:45)
[2020-04-30] MEDS: PANTOPRAZOLE 40 MG IV IVPush SCH (12:34)
[2020-04-30] MEDS: FUROSEMIDE 40 MG/4 ML IV SCH ×2 (12:34→18:03)
[2020-04-30] MEDS: SODIUM CHLORIDE FLUSH 10ML SYR IVF SCH ×2 (12:38→20:45)
[2020-04-30] MEDS ORDERED: ALBUMIN HUMAN 25% 100 ML IV ONE (18:00)
[2020-04-30] MEDS ORDERED: SODIUM CHLORIDE 0.9%, 500ML IVBOLUS ONE (18:00)
[2020-04-30] MEDS: ATORVASTATIN 40 MG TABLET PO SCH (20:45)
[2020-04-30] MEDS: FENTANYL PF 100 MCG/2ML IVPush PRN (22:57)
[2020-05-01 01:54] LABS: MEAN CORPUSCULAR HEMOGLOBIN 29.3 pg (27.5-34.5); MEAN CORPUSCULAR HGB CONC 32.5 g/dL (33.2-36.2); MEAN PLATELET VOLUME 8.1 fL (7.4-10.4); PLATELET COUNT 230 x10^3/uL (130-400); RED BLOOD COUNT 2.67 x10^6/uL (4.38-5.82)
[2020-05-01 02:07] LABS: MD YES
[2020-05-01 02:08] LABS: <PLATELET ESTIMATE> ADEQUATE; <PLT MORPHOLOGY> NORMAL PLT MORPH; <RBC MORPHOLOGY> NORMAL; BANDS%(MANUAL) 4 % (0-7); EOS% (MANUAL) 4 % (1-7); LYMPH#(MANUAL) 0.74 x10^3/uL (1-3.4); LYMPHS% (MANUAL) 6 % (22-44); MONOS#(MANUAL) 0.62 x10^3/uL (0.3-2.7); MONOS% (MANUAL) 5 % (2-9); MYELOCYTES# (MANUAL) 0.12 x10^3/uL (0-0); MYELOCYTES% (MANUAL) 1 % (0-0); SEG#(MANUAL) 9.92 x10^3/uL (1.8-6.8); SEGS% (MANUAL) 80 % (42-75)
[2020-05-01 02:28] LABS: TROPONIN I 0.021 ng/mL (0.000-0.045)
[2020-05-01 04:00] VITALS: BP 116/54
[2020-05-01] MEDS: ACETAMINOPHEN 650 MG/20.3 ML UDC PO PRN (04:51)
[2020-05-01] MEDS ORDERED: MAGNESIUM SULFATE PMX 2GM/50ML 50 ML ONE (06:20)
[2020-05-01] MEDS ORDERED: MAGNESIUM SULFATE PMX 2GM/50ML 50 ML IV ONE (06:30)
[2020-05-01 06:47] LABS: TROPONIN I 0.022 ng/mL (0.000-0.045)
[2020-05-01 07:22] LABS: ANION GAP 13 mmol/L (5-15); CALCIUM 7.9 mg/dL (8.5-10.1); CHLORIDE 103 mmol/L (98-107); CREATININE 2.15 mg/dL (0.7-1.3)
[2020-05-01] MEDS: CEFTRIAXONE PMX 2GM/50ML 50 ML IVPB SCH (08:34)
[2020-05-01] MEDS: CHOLESTYRAMINE LIGHT 4GM PACKET PO SCH ×2 (08:34→19:58)
[2020-05-01] MEDS: PANTOPRAZOLE 40 MG IV IVPush SCH (08:34)
[2020-05-01] MEDS: QUETIAPINE 25MG TABLET PO SCH ×3 (08:35→19:59)
[2020-05-01] MEDS: ASPIRIN 81 MG TABLET CHEW PO SCH (08:35)
[2020-05-01] MEDS: FUROSEMIDE 40 MG/4 ML IV SCH ×2 (08:35→19:58)
[2020-05-01] MEDS: SODIUM CHLORIDE FLUSH 10ML SYR IVF SCH ×2 (08:35→19:58)
[2020-05-01] MEDS: HEPARIN 5,000 UNITS/ML, 1ML SQ SCH ×2 (08:38→19:59)
[2020-05-01] MEDS: NOREPINEPHRINE 8 MG in SODIUM CHLORIDE 0.9% 242 ML IV PRN (11:03)
[2020-05-01] MEDS: IRON SUCROSE COMPLEX 100MG/5ML IV SCH (11:09)
[2020-05-01 12:47] LABS: TROPONIN I 0.029 ng/mL (0.000-0.045)
[2020-05-01] MEDS: ATORVASTATIN 40 MG TABLET PO SCH (19:58)
[2020-05-02 04:00] VITALS: BP 119/75
[2020-05-02 06:16] LABS: MEAN CORPUSCULAR HEMOGLOBIN 29.3 pg (27.5-34.5); MEAN CORPUSCULAR HGB CONC 32.5 g/dL (33.2-36.2); MEAN PLATELET VOLUME 8.2 fL (7.4-10.4); PLATELET COUNT 229 x10^3/uL (130-400); RED BLOOD COUNT 2.75 x10^6/uL (4.38-5.82); RED CELL DISTRIBUTION WIDTH 15.5 % (9.4-14.8)
[2020-05-02 06:29] LABS: ANION GAP 10 mmol/L (5-15); CALCIUM 8.6 mg/dL (8.5-10.1); CHLORIDE 106 mmol/L (98-107); CREATININE 2.44 mg/dL (0.7-1.3)
[2020-05-02 06:38] LABS: BASOPHILS # (AUTO) 0.01 x10^3/uL (0-0.1); BASOPHILS % (AUTO) 0 % (0-1); EOSINOPHILS # (AUTO) 0.16 x10^3/uL (0-0.4); EOSINOPHILS % (AUTO) 2 % (1-7); LYMPHOCYTES # (AUTO) 0.64 x10^3/uL (1-3.4); LYMPHOCYTES % (AUTO) 6 % (22-44); MD SCAN; MONOCYTES # (AUTO) 0.58 x10^3/uL (0.2-0.8); MONOCYTES % (AUTO) 6 % (2-9); NEUTROPHILS # (AUTO) 9.19 x10^3/uL (1.8-6.8); NEUTROPHILS % (AUTO) 87 % (42-75)
[2020-05-02] MEDS: ASPIRIN 81 MG TABLET CHEW PO SCH (07:53)
[2020-05-02] MEDS: QUETIAPINE 25MG TABLET PO SCH ×3 (07:53→19:43)
[2020-05-02] MEDS: FUROSEMIDE 40 MG/4 ML IV SCH ×2 (07:53→19:44)
[2020-05-02] MEDS: HEPARIN 5,000 UNITS/ML, 1ML SQ SCH ×2 (07:53→19:45)
[2020-05-02] MEDS: CHOLESTYRAMINE LIGHT 4GM PACKET PO SCH ×2 (07:53→21:01)
[2020-05-02] MEDS: PANTOPRAZOLE 40 MG IV IVPush SCH (07:53)
[2020-05-02] MEDS: SODIUM CHLORIDE FLUSH 10ML SYR IVF SCH ×2 (07:54→19:44)
[2020-05-02] MEDS: CEFTRIAXONE PMX 2GM/50ML 50 ML IVPB SCH (08:20)
[2020-05-02] MEDS: IRON SUCROSE COMPLEX 100MG/5ML IV SCH (11:00)
[2020-05-02] MEDS ORDERED: ZIPRASIDONE 20 MG INJ IM PRN (11:00)
[2020-05-02] MEDS: ATORVASTATIN 40 MG TABLET PO SCH (19:43)
[2020-05-03] MEDS: ACETAMINOPHEN 650 MG/20.3 ML UDC PO PRN (01:34)
[2020-05-03 03:57] VITALS: BP 114/67
[2020-05-03] MEDS: FUROSEMIDE 40 MG/4 ML IV SCH (07:43)
[2020-05-03] MEDS: CEFTRIAXONE PMX 2GM/50ML 50 ML IVPB SCH (08:35)
[2020-05-03] MEDS: HEPARIN 5,000 UNITS/ML, 1ML SQ SCH ×2 (08:36→20:31)
[2020-05-03] MEDS: PANTOPRAZOLE 40 MG IV IVPush SCH (08:36)
[2020-05-03] MEDS: SODIUM CHLORIDE FLUSH 10ML SYR IVF SCH ×2 (08:36→20:39)
[2020-05-03] MEDS: ASPIRIN 81 MG TABLET CHEW PO SCH (08:51)
[2020-05-03] MEDS: QUETIAPINE 25MG TABLET PO SCH ×3 (08:52→20:26)
[2020-05-03] MEDS: IRON SUCROSE COMPLEX 100MG/5ML IV SCH (11:06)
[2020-05-03 15:00] VITALS: BP 129/64
[2020-05-03] MEDS: ATORVASTATIN 40 MG TABLET PO SCH (20:26)
[2020-05-03 20:45] VITALS: BP 131/71
[2020-05-04 01:30] VITALS: BP 116/61
[2020-05-04 06:45] VITALS: BP 125/73
[2020-05-04] MEDS ORDERED: LACTATED RINGERS 1,000 ML IV SCH (09:00)
[2020-05-04] MEDS: CEFTRIAXONE PMX 2GM/50ML 50 ML IVPB SCH (10:20)
[2020-05-04] MEDS: ASPIRIN 81 MG TABLET CHEW PO SCH (10:21)
[2020-05-04] MEDS: IRON SUCROSE COMPLEX 100MG/5ML IV SCH (10:21)
[2020-05-04] MEDS: QUETIAPINE 25MG TABLET PO SCH ×2 (10:21→22:27)
[2020-05-04] MEDS: HEPARIN 5,000 UNITS/ML, 1ML SQ SCH ×2 (10:21→22:32)
[2020-05-04] MEDS: SODIUM CHLORIDE FLUSH 10ML SYR IVF SCH ×2 (10:26→21:00)
[2020-05-04] MEDS: ERGOCALCIFEROL 50,000 UNIT CAPSULE PO SCH (12:10)
[2020-05-04 12:30] VITALS: BP 98/63
[2020-05-04 14:12] LABS: ALBUMIN 2.5 g/dL (3.4-5.0); ANION GAP 8 mmol/L (5-15); CALCIUM 8.5 mg/dL (8.5-10.1); CHLORIDE 107 mmol/L (98-107); CREATININE 1.97 mg/dL (0.7-1.3)
[2020-05-04] MEDS ORDERED: HALOPERIDOL 5 MG/ML IM PRN (16:00)
[2020-05-04] MEDS ORDERED: QUETIAPINE 25MG TABLET PO SCH (16:00)
[2020-05-04] MEDS: GUAIFENESIN/DM 100-10MG, 5ML UDC PO SCH ×2 (17:27→22:27)
[2020-05-04 22:16] VITALS: BP 106/67
[2020-05-04] MEDS: ATORVASTATIN 40 MG TABLET PO SCH (22:26)
[2020-05-05 02:51] VITALS: BP 106/65
[2020-05-05] MEDS: GUAIFENESIN/DM 100-10MG, 5ML UDC PO SCH ×4 (04:00→21:12)
[2020-05-05 05:36] LABS: ALBUMIN 2.6 g/dL (3.4-5.0); ANION GAP 8 mmol/L (5-15); CALCIUM 8.4 mg/dL (8.5-10.1); CHLORIDE 107 mmol/L (98-107)
[2020-05-05 05:40] LABS: CREATININE 1.88 mg/dL (0.7-1.3)
[2020-05-05 05:45] LABS: BASOPHILS # (AUTO) 0.07 x10^3/uL (0-0.1); BASOPHILS % (AUTO) 1 % (0-1); EOSINOPHILS # (AUTO) 0.09 x10^3/uL (0-0.4); EOSINOPHILS % (AUTO) 1 % (1-7); LYMPHOCYTES # (AUTO) 1.12 x10^3/uL (1-3.4); LYMPHOCYTES % (AUTO) 10 % (22-44); MD NO; MEAN CORPUSCULAR HEMOGLOBIN 29.1 pg (27.5-34.5); MEAN CORPUSCULAR HGB CONC 32.3 g/dL (33.2-36.2); MONOCYTES # (AUTO) 0.47 x10^3/uL (0.2-0.8); MONOCYTES % (AUTO) 4 % (2-9); NEUTROPHILS # (AUTO) 9.87 x10^3/uL (1.8-6.8); NEUTROPHILS % (AUTO) 85 % (42-75); PLATELET COUNT 329 x10^3/uL (130-400); RED BLOOD COUNT 3.04 x10^6/uL (4.38-5.82); RED CELL DISTRIBUTION WIDTH 16.2 % (9.4-14.8)
[2020-05-05] MEDS: CEFTRIAXONE PMX 2GM/50ML 50 ML IVPB SCH (08:50)
[2020-05-05] MEDS: ASPIRIN 81 MG TABLET CHEW PO SCH (09:00)
[2020-05-05] MEDS: SODIUM CHLORIDE FLUSH 10ML SYR IVF SCH ×2 (09:00→21:12)
[2020-05-05] MEDS: HEPARIN 5,000 UNITS/ML, 1ML SQ SCH ×2 (09:00→21:12)
[2020-05-05] MEDS: IRON SUCROSE COMPLEX 100MG/5ML IV SCH (11:00)
[2020-05-05 13:59] VITALS: BP 126/68
[2020-05-05] MEDS: ATORVASTATIN 40 MG TABLET PO SCH (21:12)
[2020-05-05] MEDS: QUETIAPINE 25MG TABLET PO SCH (21:12)
[2020-05-06 02:29] VITALS: BP 133/74
[2020-05-06] MEDS: GUAIFENESIN/DM 100-10MG, 5ML UDC PO SCH ×4 (04:55→22:00)
[2020-05-06 05:24] LABS: ALBUMIN 2.4 g/dL (3.4-5.0); ANION GAP 6 mmol/L (5-15); CALCIUM 8.6 mg/dL (8.5-10.1); CHLORIDE 107 mmol/L (98-107); CREATININE 1.48 mg/dL (0.7-1.3)
[2020-05-06] MEDS: SODIUM CHLORIDE FLUSH 10ML SYR IVF SCH ×2 (09:00→21:00)
[2020-05-06] MEDS ORDERED: LACTATED RINGERS 1,000 ML IV SCH (09:00)
[2020-05-06] MEDS: ASPIRIN 81 MG TABLET CHEW PO SCH (09:39)
[2020-05-06] MEDS: HEPARIN 5,000 UNITS/ML, 1ML SQ SCH ×2 (09:40→21:00)
[2020-05-06] MEDS: CEFTRIAXONE PMX 2GM/50ML 50 ML IVPB SCH (09:40)
[2020-05-06 14:00] VITALS: BP 146/88
[2020-05-06] MEDS: QUETIAPINE 25MG TABLET PO SCH (21:00)
[2020-05-06] MEDS: ATORVASTATIN 40 MG TABLET PO SCH (21:00)
[2020-05-07] MEDS: GUAIFENESIN/DM 100-10MG, 5ML UDC PO SCH ×5 (03:03→21:32)
[2020-05-07 08:53] VITALS: BP 120/71
[2020-05-07 09:00] LABS: MEAN CORPUSCULAR HEMOGLOBIN 28.7 pg (27.5-34.5); MEAN CORPUSCULAR HGB CONC 31.6 g/dL (33.2-36.2); MEAN PLATELET VOLUME 6.8 fL (7.4-10.4); PLATELET COUNT 326 x10^3/uL (130-400); RED BLOOD COUNT 3.23 x10^6/uL (4.38-5.82); RED CELL DISTRIBUTION WIDTH 15.2 % (9.4-14.8)
[2020-05-07] MEDS: ASPIRIN 81 MG TABLET CHEW PO SCH (09:03)
[2020-05-07] MEDS: HEPARIN 5,000 UNITS/ML, 1ML SQ SCH ×2 (09:08→20:51)
[2020-05-07] MEDS: SODIUM CHLORIDE FLUSH 10ML SYR IVF SCH ×2 (09:09→20:54)
[2020-05-07 09:25] LABS: BASOPHILS # (AUTO) 0.02 x10^3/uL (0-0.1); BASOPHILS % (AUTO) 0 % (0-1); EOSINOPHILS # (AUTO) 0.17 x10^3/uL (0-0.4); EOSINOPHILS % (AUTO) 2 % (1-7); LYMPHOCYTES # (AUTO) 0.79 x10^3/uL (1-3.4); LYMPHOCYTES % (AUTO) 10 % (22-44); MD SCAN; MONOCYTES # (AUTO) 0.29 x10^3/uL (0.2-0.8); MONOCYTES % (AUTO) 4 % (2-9); NEUTROPHILS % (AUTO) 85 % (42-75)
[2020-05-07 10:14] LABS: ALBUMIN 2.5 g/dL (3.4-5.0); ANION GAP 9 mmol/L (5-15); CHLORIDE 109 mmol/L (98-107); CREATININE 1.26 mg/dL (0.7-1.3)
[2020-05-07] MEDS: CEFTRIAXONE PMX 2GM/50ML 50 ML IVPB SCH (10:58)
[2020-05-07] MEDS: LACTATED RINGERS 1,000 ML IV SCH (11:56)
[2020-05-07 15:13] VITALS: BP 132/77
[2020-05-07 18:28] VITALS: BP 148/70
[2020-05-07] MEDS: QUETIAPINE 25MG TABLET PO SCH (20:49)
[2020-05-07] MEDS: ATORVASTATIN 40 MG TABLET PO SCH (20:49)
[2020-05-08 00:54] VITALS: BP 121/68
[2020-05-08] MEDS: GUAIFENESIN/DM 100-10MG, 5ML UDC PO SCH ×3 (04:00→16:00)
[2020-05-08] MEDS: LACTATED RINGERS 1,000 ML IV SCH (09:00)
[2020-05-08] MEDS: CEFTRIAXONE PMX 2GM/50ML 50 ML IVPB SCH (10:46)
[2020-05-08] MEDS: SODIUM CHLORIDE FLUSH 10ML SYR IVF SCH (10:47)
[2020-05-08] MEDS: ASPIRIN 81 MG TABLET CHEW PO SCH (10:47)
[2020-05-08] MEDS: HEPARIN 5,000 UNITS/ML, 1ML SQ SCH (10:47)
[2020-05-08 13:55] VITALS: BP 125/68
[2020-06-24] MEDS ORDERED: APIX2.5T PO (10:33)
[2020-06-24] MEDS ORDERED: ATOR20TA37 PO (10:33)
[2020-06-24] MEDS ORDERED: TAMS-11 PO (10:33)
[2020-06-24] MEDS ORDERED: ASPI81TA45 PO (10:33)
== END 2020-05-08 19:53 | disposition left against medical advice (07) | DRG 870 ==
LOC: ED 10:54 → EDIP 13:54 → ICU 04-22 13:36 → CCU 04-22 17:30 → 5SO 05-03 14:50 → 4WST 05-07 04:14
PROVIDERS: ADMIT Internal Medicine; ATTEND Family Medicine
PROC: 5A1955Z Respiratory Ventilation, Greater than 96 Consecutive Hours (ICD-10-PCS; principal; 2020-04-21)
PROC: 0BH17EZ Insertion of Endotracheal Airway into Trachea, Via Natural or Artificial Opening (ICD-10-PCS; 2020-04-21)
PROC: 02HV33Z Insertion of Infusion Device into Superior Vena Cava, Percutaneous Approach (ICD-10-PCS; 2020-04-23)
PROC: B548ZZA Ultrasonography of Superior Vena Cava, Guidance (ICD-10-PCS; 2020-04-23)
PROC: 02HV33Z Insertion of Infusion Device into Superior Vena Cava, Percutaneous Approach (ICD-10-PCS; 2020-04-26)
PROC: B548ZZA Ultrasonography of Superior Vena Cava, Guidance (ICD-10-PCS; 2020-04-26)
PROC: 5A1D70Z Performance of Urinary Filtration, Intermittent, Less than 6 Hours Per Day (ICD-10-PCS; 2020-04-26)
PROC: 5A1D70Z Performance of Urinary Filtration, Intermittent, Less than 6 Hours Per Day (ICD-10-PCS; 2020-04-27)
PROC: 5A1D70Z Performance of Urinary Filtration, Intermittent, Less than 6 Hours Per Day (ICD-10-PCS; 2020-04-28)
PROC: 5A1D70Z Performance of Urinary Filtration, Intermittent, Less than 6 Hours Per Day (ICD-10-PCS; 2020-04-30)
DX: A41.51 Sepsis due to Escherichia coli [E. coli] (principal); I21.A1 Myocardial infarction type 2; J96.01 Acute respiratory failure with hypoxia; J15.4 Pneumonia due to other streptococci; N17.0 Acute kidney failure with tubular necrosis; R65.21 Severe sepsis with septic shock; G93.41 Metabolic encephalopathy; N18.6 End stage renal disease; F23 Brief psychotic disorder; E87.2 Acidosis; N39.0 Urinary tract infection, site not specified; I48.92 Unspecified atrial flutter; I13.2 Hypertensive heart and chronic kidney disease with heart failure and with stage 5 chronic kidney disease, or end stage renal disease; R04.2 Hemoptysis; I50.42 Chronic combined systolic (congestive) and diastolic (congestive) heart failure; E87.6 Hypokalemia; R62.7 Adult failure to thrive; E87.5 Hyperkalemia; D69.6 Thrombocytopenia, unspecified; E88.09 Other disorders of plasma-protein metabolism, not elsewhere classified; E83.51 Hypocalcemia; D64.9 Anemia, unspecified; I48.0 Paroxysmal atrial fibrillation; D50.9 Iron deficiency anemia, unspecified; D69.59 Other secondary thrombocytopenia; F39 Unspecified mood [affective] disorder; I44.1 Atrioventricular block, second degree; R74.0 Nonspecific elevation of levels of transaminase and lactic acid dehydrogenase [LDH]; Z20.828 Contact with and (suspected) exposure to other viral communicable diseases; Z53.29 Procedure and treatment not carried out because of patient's decision for other reasons; I73.9 Peripheral vascular disease, unspecified; D72.829 Elevated white blood cell count, unspecified; Z78.1 Physical restraint status; Z99.2 Dependence on renal dialysis
CPT/HCPCS: 36415; 36556; 36573; 36600; 70450; 71045; 71250; 76700; 77001; 80048; 80053; 80061; 80069; 80307; 81001; 82306; 82330; 82533; 82570; 82728; 82803; 83540; 83550; 83605; 83690; 83735; 83880; 83970; 84100; 84145; 84156; 84443; 84478; 84484; 84550; 85025; 85049; 85379; 85384; 85610; 85730; 86022; 86705; 86706; 87040; 87070; 87077; 87081; 87086; 87184; 87186; 87205; 87324; 87340; 87635; 90935; 93005; 93306; 93922; 94002; 94003; 96372; 96374; 96375; G0378; J0610; J0696; J1644; J1756; J1940; J2020; J2250; J2543; J2704; J3010; J3480; J7070; P9047; C1751; C9113; J0330; J0360; J1200; J1630; J1642; J2060; J3475; J7030; J7040; J7050; J7120

== ENCOUNTER 2020-05-09 14:51 | Observation (INO) | payer MEDICARE, MEDICAID ==
[~2020-05-09] VITALS: Ht 167.6 cm; Wt 68.0 kg
--- NOTE | 2020-05-09 15:13 | NUR ---
Patient BIB after receiving call from Marcel that patient was altered. Patient's blood sugar 120 en route. Upon arrival, patient is A&Ox3, and states he is here because of "sun stroke." Patient reports 7/10 abdominal pain, denies n/v/d. No further needs at this time.
--- NOTE | 2020-05-09 15:50 | NUR ---
Rachelle venegas in [facility] - 05/09/20 at 1613 by [email or web address] NAMAN CONNELLY AT BEDSIDE FOR EVALUATION.
--- NOTE | 2020-05-09 16:13 | NUR ---
ASSISTED AMBULATION TO BEDSIDE COMMODE.
--- NOTE | 2020-05-09 16:58 | NUR ---
Roadtest failed, patient unable to ambulate more than a couple feet without assistance or use of cane. Addendum: 05/09/20 at 1714 by ELIS Provider notified.
--- NOTE | 2020-05-09 17:16 | NUR ---
criminal justice social worker consulted for assistance/evaluation.
--- NOTE | 2020-05-09 18:13 | NUR ---
Assisted ambulation to bedside commode
--- NOTE | 2020-05-09 18:49 | NUR ---
REPORT FROM MARTIN THRASHER. PT RESTING WITH NO NEEDS AT THIS TIME. CALL LIGHT IN REACH
[2020-05-09] MEDS ORDERED: HALOPERIDOL 5 MG/ML IM PRN (19:30)
[2020-05-09] MEDS ORDERED: morphine SULFATE 10 MG/ML, 1ML IVPush PRN (19:30)
[2020-05-09] MEDS ORDERED: PLEASE ENTER WEIGHT MC SCH (19:30)
[2020-05-09] MEDS ORDERED: POLYETHYLENE GLYCOL 17 GM PACKET PO PRN (19:30)
[2020-05-09] MEDS ORDERED: hydrALAzine 20 MG/ML, 1ML IVPush PRN (19:30)
[2020-05-09] MEDS ORDERED: ONDANSETRON 2MG/ML, 2ML IVPush PRN (19:30)
[2020-05-09] MEDS ORDERED: ACETAMINOPHEN 325 MG TABLET PO PRN (19:30)
[2020-05-09] MEDS ORDERED: BISACODYL 10 MG SUPP PR PRN (19:30)
[2020-05-09 19:49] LABS: MEAN CORPUSCULAR HEMOGLOBIN 29.3 pg (27.5-34.5); MEAN CORPUSCULAR HGB CONC 32.3 g/dL (33.2-36.2); MEAN CORPUSCULAR VOLUME 90.6 fL (81-97); MEAN PLATELET VOLUME 6.8 fL (7.4-10.4); PLATELET COUNT 358 x10^3/uL (130-400); RED CELL DISTRIBUTION WIDTH 15.3 % (9.4-14.8)
[2020-05-09 19:53] LABS: ANION GAP 6 mmol/L (5-15); CALCIUM 8.9 mg/dL (8.5-10.1); CHLORIDE 106 mmol/L (98-107); CREATININE 1.48 mg/dL (0.7-1.3)
[2020-05-09 20:07] LABS: BASOPHILS # (AUTO) 0.04 x10^3/uL (0-0.1); BASOPHILS % (AUTO) 0 % (0-1); EOSINOPHILS # (AUTO) 0.14 x10^3/uL (0-0.4); EOSINOPHILS % (AUTO) 1 % (1-7); LYMPHOCYTES # (AUTO) 0.78 x10^3/uL (1-3.4); LYMPHOCYTES % (AUTO) 7 % (22-44); MD SCAN; MONOCYTES # (AUTO) 0.44 x10^3/uL (0.2-0.8); MONOCYTES % (AUTO) 4 % (2-9); NEUTROPHILS # (AUTO) 10.73 x10^3/uL (1.8-6.8); NEUTROPHILS % (AUTO) 88 % (42-75)
[2020-05-09 20:29] VITALS: BP 96/57
[2020-05-09] MEDS: FAMOTIDINE 20 MG/2 ML IVPush SCH (21:40)
[2020-05-09] MEDS ORDERED: POTASSIUM CHLORIDE 20 MEQ TAB.ER.PRT PO ONE (22:00)
[2020-05-09] MEDS ORDERED: SODIUM CHLORIDE 0.9%, 500ML IVBOLUS ONE (22:30)
[2020-05-10 00:21] VITALS: BP 129/83
[2020-05-10 01:29] LABS: MICROSCOPIC INDICATED
[2020-05-10 01:36] LABS: AMPHETAMINE SCREEN, URINE Negative (Negative); BARBITURATE SCREEN, URINE Negative (Negative); BENZODIAZEPINE SCREEN, URINE Negative (Negative); CANNABINOID SCREEN, URINE Negative (Negative); COCAINE SCREEN, URINE Negative (Negative); METHADONE SCREEN, URINE Negative (Negative); OPIATE SCREEN, URINE Negative (Negative)
[2020-05-10 06:07] LABS: ANION GAP 5 mmol/L (5-15); CALCIUM 8.2 mg/dL (8.5-10.1); CHLORIDE 111 mmol/L (98-107); CREATININE 1.41 mg/dL (0.7-1.3)
[2020-05-10 06:11] LABS: BASOPHILS # (AUTO) 0.02 x10^3/uL (0-0.1); BASOPHILS % (AUTO) 0 % (0-1); EOSINOPHILS # (AUTO) 0.19 x10^3/uL (0-0.4); EOSINOPHILS % (AUTO) 2 % (1-7); LYMPHOCYTES # (AUTO) 0.98 x10^3/uL (1-3.4); LYMPHOCYTES % (AUTO) 11 % (22-44); MD NO; MEAN CORPUSCULAR HEMOGLOBIN 29.7 pg (27.5-34.5); MEAN CORPUSCULAR HGB CONC 32.9 g/dL (33.2-36.2); MEAN CORPUSCULAR VOLUME 90.3 fL (81-97); MEAN PLATELET VOLUME 7.6 fL (7.4-10.4); MONOCYTES # (AUTO) 0.49 x10^3/uL (0.2-0.8); MONOCYTES % (AUTO) 5 % (2-9); NEUTROPHILS # (AUTO) 7.32 x10^3/uL (1.8-6.8); NEUTROPHILS % (AUTO) 81 % (42-75); PLATELET COUNT 276 x10^3/uL (130-400); RED BLOOD COUNT 2.91 x10^6/uL (4.38-5.82); RED CELL DISTRIBUTION WIDTH 15.5 % (9.4-14.8)
[2020-05-10 06:51] VITALS: BP 121/63
[2020-05-10] MEDS ORDERED: SENNA/DOCUSATE TABLET PO SCH (09:00)
[2020-05-10] MEDS ORDERED: CEFTRIAXONE PMX 1GM/50ML 50 ML IV SCH (09:00)
[2020-05-10] MEDS: FAMOTIDINE 20 MG/2 ML IVPush SCH (10:06)
== END 2020-05-10 10:25 | disposition left against medical advice (07) ==
LOC: ED 15:28 → INTOOBSV 18:19 → EDIP 18:19 → 3N 20:24
PROVIDERS: ADMIT Family Medicine; ATTEND Hospitalist
DX: R62.7 Adult failure to thrive (principal); E87.6 Hypokalemia; R41.82 Altered mental status, unspecified; N17.9 Acute kidney failure, unspecified; D64.9 Anemia, unspecified; D69.6 Thrombocytopenia, unspecified; I73.9 Peripheral vascular disease, unspecified; D72.829 Elevated white blood cell count, unspecified; I25.2 Old myocardial infarction; I50.9 Heart failure, unspecified; I48.91 Unspecified atrial fibrillation; F39 Unspecified mood [affective] disorder; F29 Unspecified psychosis not due to a substance or known physiological condition
CPT/HCPCS: 36415; 71045; 80048; 80307; 81001; 83735; 85025; 87086; 96361; 96374; 96376; 99284; G0378; J3490; J7040

== ENCOUNTER 2020-05-12 10:08 | Emergency (ER) | payer MEDICARE, MEDICAID ==
[~2020-05-12] VITALS: Ht 160 cm; Wt 60.0 kg
[2020-05-12 10:11] VITALS: BP 123/75
--- NOTE | 2020-05-12 10:14 | NUR ---
PT WAS SEEN AT THE BUS STATION BEHAVING ERRATICALLY. HE HAS NO COMPLAINTS TODAY, AND DOES NOT WISH RAMON BE HERE. HOWEVER, HE IS NOT ALERT AND ORIENTED TO TIME OR PLACE. HIS VS ARE WDL.
--- NOTE | 2020-05-12 10:25 | NUR ---
REPORT RECEIVED FROM SOUMYA THRASHER. PT WITH NO C/C. STATES "I JUST WANT TO GO GET MY CHECK." ERMD AT BEDSIDE FOR ASSESSMENT. PT STATES HE CAN STAY AT HIS SISTER'S HOUSE, BUT STATES HE DOESNT WANT TO TO. STATES HE WANTS HIS CHECK SO HE CAN HAVE MONEY TO GET A PLACE. PER ERMS, PT TO BE SW CONSULT. WILL FOLLOW ORDERS.
--- NOTE | 2020-05-12 11:30 | NUR ---
SW CALLED, WILL COME TO ER TO SEE PT. MEAL TRAY ORDERED.
--- NOTE | 2020-05-12 12:00 | NUR ---
REPORT GIVEN TO AGUSTÍN THRASHER.
== END 2020-05-12 12:22 | disposition home or self-care (01) ==
LOC: ED 11:56
DX: R41.82 Altered mental status, unspecified (principal); I48.91 Unspecified atrial fibrillation; I25.2 Old myocardial infarction; I50.9 Heart failure, unspecified
CPT/HCPCS: 99283

== ENCOUNTER 2021-01-31 09:01 | Emergency (ER) | payer MEDICARE, MEDICAID ==
[~2021-01-31 09:01] MED LIST: APIX2.5T PO; ASPI81TA45 PO; ATOR20TA37 PO; TAMS-11 PO
--- NOTE | 2021-01-31 09:17 | NUR ---
PT IN DECON ROOM; JEFE FOUND A COCKROACH ON PATIENT SYSTEMS ACCOUNTANT. PT REFUSING MEDICAL CARE & DECON. PT A&OX4, RESP EVEN & UNLABORED, SPEECH CLEAR, ABLE TO STAND AND AMBULATE USING OWN WALKER. DR NICHOLS AWARE, BAKESHOP CLEANER AWARE. PT TAKEN TO ED ENTRANCE TO AWAIT CAB RIDE TO RESIDENCE. PER PT, HE & [facility].
== END 2021-01-31 09:26 | disposition left against medical advice (07) ==
LOC: ED 09:20
DX: Z04.3 Encounter for examination and observation following other accident (principal); I10 Essential (primary) hypertension; E11.9 Type 2 diabetes mellitus without complications
CPT/HCPCS: 99283

== ENCOUNTER 2021-02-03 14:13 | Emergency (ER) | payer MEDICARE, MEDICAID ==
[~2021-02-03] VITALS: Ht 165.1 cm; Wt 65.0 kg
--- NOTE | 2021-02-03 14:50 | NUR ---
BIBA FOR LOITERING AT [employer], REQUIRING BATHROOM ASSISTANCE BY [employer] STAFF. PT UNCOOPERATIVE ON ARRIVAL, REFUSING VITALS AND TO ANSWER QUESTIONS. SEEN BY ERP. FOUND TO BE AT BASELINE MENTATION AND ADL'S. PT DEMANDED AMA FORM AND REFUSED. ERP AWARE. PT AMBULATORY WITH WALKER TO DC DESK.
== END 2021-02-03 14:53 | disposition left against medical advice (07) ==
LOC: ED 14:41
DX: R53.1 Weakness (principal); E11.9 Type 2 diabetes mellitus without complications; I48.91 Unspecified atrial fibrillation; I11.0 Hypertensive heart disease with heart failure; I50.9 Heart failure, unspecified; I25.2 Old myocardial infarction
CPT/HCPCS: 99283

== ENCOUNTER 2021-02-06 07:51 | Emergency (ER) | payer MEDICARE, MEDICAID ==
[~2021-02-06] VITALS: Ht 162.6 cm; Wt 55.0 kg
--- NOTE | 2021-02-06 08:18 | NUR ---
bib ems after homeless snf called stating pt could not ambulate on his own. pt states he does not want to be here and he wants to go home. Dr. Clark to bedside for evaluation. This rn observed pt walking with walker down castaneda, however when placed on bsc, pt is not able to get self up to standing postion. pt attached to monitors, vss, nadn. awaitng social work to aid in poc.
--- NOTE | 2021-02-06 09:06 | NUR ---
pt asleep when entering room. given breakfast tray. vss. love.
--- NOTE | 2021-02-06 09:40 | NUR ---
Rachelle venegas in ED - 02/06/21 at 0941 by ROGERIO PT RESTING IN BED EATING BREAKFAST. VSS. LEONARD
--- NOTE | 2021-02-06 09:41 | NUR ---
PT RESTING IN BED EATING BREAKFAST. VSS. ALVARADO.
--- NOTE | 2021-02-06 10:23 | NUR ---
pt asleep with even and unlabored respirations. vss. love. pt to go back to [facility] via [employer] today.
--- NOTE | 2021-02-06 11:12 | NUR ---
PT PLACED ON BED ALAN, VOIDED, VSS. NADN.
--- NOTE | 2021-02-06 11:24 | NUR ---
PT ASLEEP WITH EVEN AND UNLABORED RESPIRATIONS.
[2021-02-06 12:01] VITALS: BP 112/63
--- NOTE | 2021-02-06 12:15 | NUR ---
PT ASLEEP WITH EVEN AND UNLABORED RESPIRATIONS. JHON. CHRISTIANO.
--- NOTE | 2021-02-06 12:52 | NUR ---
Patient/Caregiver given discharge instructions and they have confirmed that they understand the instructions. Patient left via Wheel chair with [facility] with walker and belongings.
== END 2021-02-06 12:53 | disposition home or self-care (01) ==
LOC: ED 08:40
DX: R26.2 Difficulty in walking, not elsewhere classified (principal); E11.9 Type 2 diabetes mellitus without complications; I11.0 Hypertensive heart disease with heart failure; I50.9 Heart failure, unspecified; I25.2 Old myocardial infarction
CPT/HCPCS: 99285